=== PATIENT | female | born 1950 | race Caucasian/White ===

== ENCOUNTER 2018-03-05 18:53 | Emergency (ER) | payer OTHER, MEDICAID ==
[~2018-03-05] VITALS: Ht 165.1 cm; Wt 86.2 kg
[2018-03-05 19:04] VITALS: Ht 165.1 cm; Wt 86.2 kg
[2018-03-05 19:42] LABS: BASOPHIL % 0.3 % (0-2); PLATELET COUNT 262 x10^3mcL (130-400)
[2018-03-05 19:43] LABS: RED CELL DISTRIBUTION WIDTH 15.8 % (11.5-14.5)
[2018-03-05 20:00] LABS: CALCIUM 8.1 mg/dL (8.5-10.1); CARBON DIOXIDE 28.2 mmol/L (21-32); CHLORIDE SERUM 106 mmol/L (98-107); CREATININE SERUM 0.7 mg/dL (0.6-1.0); GFR1 > 60 mL/min; GLUCOSE SERUM 110 mg/dL (74-106); POTASSIUM SERUM 4.7 mmol/L (3.5-5.1); SODIUM SERUM 140 mmol/L (136-145)
[2018-03-05 20:04] LABS: ALKALINE PHOSPHATASE 59 U/L (46-116); ALT/SGPT 22 U/L (14-59); AST/SGOT 18 U/L (15-37); BILIRUBIN TOTAL 0.49 mg/dL (0.20-1.00); TOTAL PROTEIN, SERUM 6.7 g/dL (6.4-8.2); URIC ACID 3.4 mg/dL (2.6-6.0)
[2018-03-05 20:05] LABS: ALBUMIN 3.1 g/dL (3.4-5.0)
[2018-03-05 20:33] LABS: ERYTHROCYTE SED RATE 28 mm/hr (0-30)
[2018-03-05 20:41] LABS: C REACTIVE PROTEIN 0.2 mg/dL (<=0.9)
[2018-03-05 21:55] VITALS: BP 119/60
== END 2018-03-05 21:55 | disposition home or self-care (01) ==
LOC: ED 18:53
PROVIDERS: Emergency Medicine
DX: R60.9 Edema, unspecified (principal); F31.9 Bipolar disorder, unspecified; F03.90 Unspecified dementia, unspecified severity, without behavioral disturbance, psychotic disturbance, mood disturbance, and anxiety; I10 Essential (primary) hypertension; F32.9 Major depressive disorder, single episode, unspecified; E78.5 Hyperlipidemia, unspecified; Z88.1 Allergy status to other antibiotic agents
CPT/HCPCS: 36415; Q0092